=== PATIENT | female | born 1945 | race Caucasian/White ===

== ENCOUNTER 2022-02-07 11:41 | Emergency (ER) | payer BC ==
[~2022-02-07] VITALS: Ht 157.5 cm; Wt 52.2 kg
--- NOTE | 2022-02-07 11:57 | NUR ---
Dr White at the bedside for MSE.
[2022-02-07] MEDS ORDERED: SENNOSIDES/DOCUSATE SODIUM TABLET PO SCH (12:15)
[2022-02-07] MEDS ORDERED: FLEET ENEMA 133 ML BOTTLE RC ONE ×2 (12:15→12:19)
--- NOTE | 2022-02-07 13:35 | NUR ---
Pt had a large amount of stool and states feeling better.
[2022-02-07] MEDS ORDERED: SENN-22 PO (13:42)
--- NOTE | 2022-02-07 14:46 | NUR ---
Patient discharged to home in stable condition. Written and verbal after care instructions given. Patient verbalizes understanding of instructions. Stressed follow up or return to ER for worsening s/s.
[2022-02-07 14:47] VITALS: BP 122/78
== END 2022-02-07 14:47 | disposition home or self-care (01) ==
LOC: ER 11:41
DX: K56.41 Fecal impaction (principal); F03.90 Unspecified dementia, unspecified severity, without behavioral disturbance, psychotic disturbance, mood disturbance, and anxiety; R03.0 Elevated blood-pressure reading, without diagnosis of hypertension; E03.9 Hypothyroidism, unspecified; J98.11 Atelectasis
CPT/HCPCS: A4663